=== PATIENT | female | born 1985 | race Caucasian/White ===

== ENCOUNTER 2021-08-12 22:25 | Emergency (ER) | payer MEDICARE, MEDICAID ==
[2021-08-12] MEDS ORDERED: Ondansetron 4 MG Tab.DIS PO ONE (23:24)
[2021-08-13 00:36] LABS: ACETAMINOPHEN 0 ug/mL (10-30)
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
[2021-08-13] MEDS ORDERED: Metoclopramide 10 MG Tab PO ONE (08:02)
[2021-08-13] MEDS ORDERED: Acetaminophen 325 MG Tab PO ONE (09:20)
[2021-08-13] MEDS ORDERED: metFORMIN 500 MG Tab PO ONE (17:01)
[2021-08-13] MEDS ORDERED: Levothyroxine 75 MCG Tab PO ONE (17:03)
[2021-08-13] MEDS ORDERED: Spironolactone 25 MG Tab PO ONE (17:04)
[2021-08-13] MEDS ORDERED: lamoTRIgine 100 MG Tab PO ONE (17:37)
[2021-08-13] MEDS ORDERED: Aspirin 325 MG Tab.EC ONE (17:41)
[2021-08-14] MEDS ORDERED: Levothyroxine 100 MCG Tab PO ONE ×3 (06:00→17:03)
[2021-08-14] MEDS ORDERED: Levothyroxine 75 MCG Tab PO ONE (06:21)
[2021-08-14] MEDS ORDERED: Spironolactone 25 MG Tab PO ONE (06:21)
[2021-08-14] MEDS ORDERED: metFORMIN 500 MG Tab PO ONE (06:21)
[2021-08-14] MEDS ORDERED: lamoTRIgine 100 MG Tab PO ONE (06:21)
--- NOTE | 2021-08-14 12:42 | CR ---
Chest: Portable view of the chest was obtained. Comparison: No prior chest imaging is available. Heart size and mediastinum are normal. Lungs are clear with no acute parenchymal change. Linear density is seen within the right upper chest which is most likely artifact. Bony structures show nothing acute. Impression: 1. Nothing acute is seen on portable chest x-ray. Diagnostic code #2
[2021-08-14] MEDS ORDERED: Aspirin 325 MG Tab.EC PO ONE (16:59)
[2021-08-15] MEDS ORDERED: Levothyroxine 100 MCG Tab PO SCH (06:00)
== END 2021-08-14 06:38 ==
LOC: JD.ED 22:25
DX: F32.A Depression, unspecified (principal); F10.10 Alcohol abuse, uncomplicated; E03.9 Hypothyroidism, unspecified; Z88.5 Allergy status to narcotic agent; Z91.040 Latex allergy status; Z91.048 Other nonmedicinal substance allergy status; Z79.899 Other long term (current) drug therapy; Z72.0 Tobacco use; Z79.82 Long term (current) use of aspirin; Z20.822 Contact with and (suspected) exposure to COVID-19; Y90.5 Blood alcohol level of 100-119 mg/100 ml
CPT/HCPCS: 36415; 80053; 80143; 80179; 80306; 80307; 84439; 84443; 85025; 99285; A9270; 71045; 71045-26; U0002